=== PATIENT | female | born 1955 | race Caucasian/White ===

== ENCOUNTER 2017-01-31 04:53 | Inpatient (IN) | payer BC ==
[~2017-01-31] VITALS: Ht 157.5 cm; Wt 88.6 kg
[2017-01-31] MEDS ORDERED: TIOT18CA INH (06:00)
[2017-01-31] MEDS ORDERED: FLOVENT (06:00)
[2017-01-31] MEDS ORDERED: FENTANYL PF 100 MCG/2ML IV ONE (06:00)
[2017-01-31] MEDS ORDERED: DOCU-131 PO (06:01)
[2017-01-31] MEDS ORDERED: AMOX1TAB64 PO (06:02)
[2017-01-31] MEDS ORDERED: FENTANYL PF 100 MCG/2ML ONE ×5 (06:03→22:58)
[2017-01-31 08:07] VITALS: BP 149/86
[2017-01-31] MEDS ORDERED: ONDANSETRON 2MG/ML, 2ML IVPush PRN (08:30)
[2017-01-31] MEDS: PANTOPRAZOLE 40 MG IV IVPush SCH (08:30)
[2017-01-31] MEDS ORDERED: morphine SULFATE 10 MG/ML, 1ML IVPush PRN (08:30)
[2017-01-31] MEDS ORDERED: ERTAPENEM 1 GM in SODIUM CHLORIDE 0.9% 50 ML IV SCH (08:30)
[2017-01-31] MEDS ORDERED: hydrALAzine 20 MG/ML, 1ML IVPush PRN (08:30)
[2017-01-31] MEDS ORDERED: POTASSIUM CHLORIDE 40 MEQ in SODIUM CHLORIDE 0.9% 500 ML IV ONE (08:30)
[2017-01-31] MEDS: SODIUM CHLORIDE 0.9% 1,000 ML IV SCH ×2 (08:49→13:51)
[2017-01-31 08:54] LABS: HEMATOCRIT 39.7 % (34.6-47.8); HEMOGLOBIN 13.1 g/dL (11.7-16.4); WHITE BLOOD COUNT 14.7 x10^3/uL (3.4-10)
[2017-01-31] MEDS ORDERED: MIDAZOLAM 1 MG/ML, 2ML ONE ×2 (09:02→22:58)
[2017-01-31 09:06] LABS: BLOOD UREA NITROGEN 8 mg/dL (7-18)
[2017-01-31] MEDS ORDERED: ROPIvacaine/PF 0.2%, 20 ML ONE (09:18)
[2017-01-31] MEDS ORDERED: NOREPINEPHRINE 1 MG/ML, 4ML ONE (09:28)
[2017-01-31] MEDS ORDERED: PROPOFOL 10 MG/ML, 20ML ONE (09:31)
[2017-01-31] MEDS ORDERED: ROCURONIUM 10 MG/ML ONE (09:31)
[2017-01-31] MEDS ORDERED: DEXAMETHASONE 4 MG/ML, 1ML ONE (09:31)
[2017-01-31] MEDS ORDERED: SUCCINYLCHOLINE 20 MG/ML, 10ML ONE (09:31)
[2017-01-31] MEDS ORDERED: ALBUTEROL SULFATE 200 PUFFS/8.5 GR INH ONE (09:31)
[2017-01-31] MEDS ORDERED: HYDROmorphone 2 MG/ML, 1ML ONE (10:04)
[2017-01-31] MEDS ORDERED: NOREPINEPHRINE 4 MG in SODIUM CHLORIDE 0.9% 246 ML IV PRN (12:39)
[2017-01-31] MEDS ORDERED: PHARMACY MAY ADJ FOR RENAL FX MC SCH (13:00)
[2017-01-31] MEDS ORDERED: LIDOCAINE-MPF 1%, 2ML ENDO PRN (13:00)
[2017-01-31] MEDS ORDERED: FAMOTIDINE 20 MG/2 ML IVPush ONE (13:00)
[2017-01-31 13:12] LABS: ABG COLLECTION SITE ARTERIAL LINE
[2017-01-31] MEDS ORDERED: ALBUTEROL/IPRATROPIUM 2.5MG/0.5MG, 3 ML ONE (13:40)
[2017-01-31] MEDS: PIPERACILLIN/TAZO/PMX 3.375GM 50 ML IV SCH ×2 (13:51→20:20)
[2017-01-31] MEDS ORDERED: ENOXAPARIN 30 MG/0.3 ML SQ SCH (14:00)
[2017-01-31] MEDS: PROPOFOL 100 ML IV PRN ×2 (14:18→20:10)
[2017-01-31] MEDS ORDERED: LIDOCAINE 1%, 20ML ONE (14:26)
[2017-01-31] MEDS: ALBUTEROL/IPRATROPIUM 2.5MG/0.5MG, 3 ML INLINE SCH ×3 (14:56→21:56)
[2017-01-31] MEDS: KETOROLAC 30 MG/1 ML IV SCH ×2 (15:20→20:19)
[2017-01-31] MEDS: NOREPINEPHRINE 4 MG in SODIUM CHLORIDE 0.9% 246 ML IV PRN ×2 (17:46→21:25)
[2017-01-31] MEDS ORDERED: OMNIPAQUE 350 MG/ML, 100ML BOTTLE ONE (18:10)
[2017-01-31 21:51] LABS: HEMATOCRIT 30.1 % (34.6-47.8); HEMOGLOBIN 9.9 g/dL (11.7-16.4)
[2017-01-31 22:13] LABS: ABG COLLECTION SITE ARTERIAL LINE
[2017-01-31] MEDS ORDERED: VASOPRESSIN 100 UNIT in SODIUM CHLORIDE 0.9% 495 ML IV PRN (23:00)
[2017-02-01] MEDS ORDERED: CALCIUM CHLORIDE 13.6 MEQ in SODIUM CHLORIDE 0.9% 100 ML IV ONE (01:00)
[2017-02-01] MEDS: SODIUM CHLORIDE 0.9% 1,000 ML IV SCH ×3 (01:01→17:23)
[2017-02-01] MEDS: PIPERACILLIN/TAZO/PMX 3.375GM 50 ML IV SCH ×2 (01:05→07:38)
[2017-02-01] MEDS: KETOROLAC 30 MG/1 ML IV SCH ×5 (01:06→22:14)
[2017-02-01] MEDS: NOREPINEPHRINE 4 MG in SODIUM CHLORIDE 0.9% 246 ML IV PRN ×5 (01:51→19:52)
[2017-02-01 01:58] LABS: PROTIME 13.8 Seconds (9.6-11.5)
[2017-02-01] MEDS: ALBUTEROL/IPRATROPIUM 2.5MG/0.5MG, 3 ML INLINE SCH ×6 (02:11→22:02)
[2017-02-01 04:23] LABS: ABG COLLECTION SITE ARTERIAL LINE
[2017-02-01 04:29] LABS: HEMATOCRIT 28.3 % (34.6-47.8); HEMOGLOBIN 9.4 g/dL (11.7-16.4); WHITE BLOOD COUNT 32.1 x10^3/uL (3.4-10)
[2017-02-01 04:39] LABS: BLOOD UREA NITROGEN 17 mg/dL (7-18)
[2017-02-01 04:43] LABS: ASPARTATE AMINO TRANSFERASE 27 U/L (15-37)
[2017-02-01 04:48] LABS: DIFF TOTAL CELLS COUNTED 100 CELL DIFF
[2017-02-01 04:50] LABS: ANISOCYTOSIS 1+; VERIFY COUNTS? YES
[2017-02-01 04:51] LABS: POLYCHROMASIA 1+
[2017-02-01] MEDS: PANTOPRAZOLE 40 MG IV IVPush SCH (07:38)
[2017-02-01] MEDS: MEROPENEM 1 GM in SODIUM CHLORIDE 0.9% 100 ML IV SCH ×2 (10:00→17:23)
[2017-02-01 11:52] LABS: HEMATOCRIT 24.3 % (34.6-47.8)
[2017-02-01] MEDS: FENTANYL PF 2,500 MCG in SODIUM CHLORIDE 0.9% 200 ML IV PRN (12:20)
[2017-02-01 17:17] LABS: BLOOD UREA NITROGEN 24 mg/dL (7-18)
[2017-02-01 17:21] LABS: HEMOGLOBIN 7.5 g/dL (11.7-16.4)
[2017-02-01 17:24] LABS: HEMATOCRIT 22.8 % (34.6-47.8)
[2017-02-01 17:40] LABS: DIFF TOTAL CELLS COUNTED 100 CELL DIFF
[2017-02-01 17:43] LABS: VERIFY COUNTS? YES
[2017-02-01 17:46] LABS: ANISOCYTOSIS 1+; HYPOCHROMIA 1+; POLYCHROMASIA 1+; TARGET CELLS 1+
[2017-02-01 18:04] VITALS: BP 112/58
[2017-02-01 18:19] VITALS: BP 109/59
[2017-02-01 21:11] LABS: HEMATOCRIT 23.7 % (34.6-47.8)
[2017-02-02] MEDS: NOREPINEPHRINE 4 MG in SODIUM CHLORIDE 0.9% 246 ML IV PRN ×2 (00:29→08:42)
[2017-02-02] MEDS: MEROPENEM 1 GM in SODIUM CHLORIDE 0.9% 100 ML IV SCH ×3 (00:31→17:02)
[2017-02-02] MEDS: ALBUTEROL/IPRATROPIUM 2.5MG/0.5MG, 3 ML INLINE SCH ×5 (01:38→18:59)
[2017-02-02 04:31] LABS: ABG COLLECTION SITE ARTERIAL LINE
[2017-02-02 04:37] LABS: HEMOGLOBIN 7.4 g/dL (11.7-16.4); WHITE BLOOD COUNT 21.7 x10^3/uL (3.4-10)
[2017-02-02 04:46] LABS: HEMATOCRIT 22.3 % (34.6-47.8)
[2017-02-02 04:50] LABS: BLOOD UREA NITROGEN 18 mg/dL (7-18)
[2017-02-02 04:54] LABS: ASPARTATE AMINO TRANSFERASE 25 U/L (15-37)
[2017-02-02 05:08] LABS: DIFF TOTAL CELLS COUNTED 100 CELL DIFF
[2017-02-02 05:09] LABS: ANISOCYTOSIS 1+; VERIFY COUNTS? YES
[2017-02-02 05:10] LABS: POLYCHROMASIA 1+
[2017-02-02] MEDS: KETOROLAC 30 MG/1 ML IV SCH ×4 (05:10→21:31)
[2017-02-02] MEDS: SODIUM CHLORIDE 0.9% 1,000 ML IV SCH ×4 (05:10→21:31)
[2017-02-02] MEDS ORDERED: SODIUM BICARBONATE 1 MEQ/ML, 50ML VIAL ONE (05:57)
[2017-02-02] MEDS ORDERED: SODIUM BICARB 8.4%, 50ML SYRINGE IVPush ONE (06:00)
[2017-02-02] MEDS: PANTOPRAZOLE 40 MG IV IVPush SCH (08:42)
[2017-02-02 10:08] LABS: HEMATOCRIT 19.9 % (34.6-47.8); HEMOGLOBIN 6.6 g/dL (11.7-16.4)
[2017-02-02 10:56] VITALS: BP 123/67
[2017-02-02 11:10] VITALS: BP 109/66
[2017-02-02 12:21] VITALS: BP 107/52
[2017-02-02 12:37] VITALS: BP 114/55
[2017-02-02 12:50] VITALS: BP 114/58
[2017-02-02 14:06] VITALS: BP 109/56
[2017-02-02 15:55] LABS: HEMATOCRIT 25.4 % (34.6-47.8); HEMOGLOBIN 8.6 g/dL (11.7-16.4)
[2017-02-02] MEDS ORDERED: ALBUTEROL/IPRATROPIUM 2.5MG/0.5MG, 3 ML INLINE SCH (21:00)
[2017-02-02 21:43] LABS: HEMATOCRIT 25.1 % (34.6-47.8); HEMOGLOBIN 8.4 g/dL (11.7-16.4)
[2017-02-03] MEDS: MEROPENEM 1 GM in SODIUM CHLORIDE 0.9% 100 ML IV SCH ×3 (01:18→17:54)
[2017-02-03] MEDS: ALBUTEROL/IPRATROPIUM 2.5MG/0.5MG, 3 ML INLINE SCH ×5 (03:00→19:40)
[2017-02-03] MEDS: KETOROLAC 30 MG/1 ML IV SCH (03:46)
[2017-02-03 04:22] LABS: HEMATOCRIT 24.8 % (34.6-47.8); HEMOGLOBIN 8.3 g/dL (11.7-16.4); WHITE BLOOD COUNT 13.8 x10^3/uL (3.4-10)
[2017-02-03 04:30] LABS: BLOOD UREA NITROGEN 15 mg/dL (7-18)
[2017-02-03 04:35] LABS: ASPARTATE AMINO TRANSFERASE 29 U/L (15-37)
[2017-02-03] MEDS: PANTOPRAZOLE 40 MG IV IVPush SCH (07:52)
[2017-02-03] MEDS ORDERED: FUROSEMIDE 20 MG/2 ML IV ONE (09:00)
[2017-02-03] MEDS: FENTANYL PF 2,500 MCG in SODIUM CHLORIDE 0.9% 200 ML IV PRN (09:43)
[2017-02-03 10:02] LABS: HEMATOCRIT 26.1 % (34.6-47.8); HEMOGLOBIN 8.9 g/dL (11.7-16.4)
[2017-02-03 15:26] LABS: HEMATOCRIT 25.8 % (34.6-47.8); HEMOGLOBIN 8.6 g/dL (11.7-16.4)
[2017-02-03 21:52] LABS: HEMATOCRIT 26.1 % (34.6-47.8); HEMOGLOBIN 8.8 g/dL (11.7-16.4)
[2017-02-04] MEDS: MEROPENEM 1 GM in SODIUM CHLORIDE 0.9% 100 ML IV SCH ×3 (00:29→17:55)
[2017-02-04 04:25] LABS: ABG COLLECTION SITE RIGHT RADIAL; COLLATERAL CIRCULATION TESTING NORMAL
[2017-02-04 04:27] LABS: BLOOD UREA NITROGEN 12 mg/dL (7-18)
[2017-02-04 04:30] LABS: HEMATOCRIT 26.7 % (34.6-47.8); HEMOGLOBIN 8.9 g/dL (11.7-16.4); WHITE BLOOD COUNT 11.6 x10^3/uL (3.4-10)
[2017-02-04 05:00] VITALS: BP 130/76
[2017-02-04] MEDS: ALBUTEROL/IPRATROPIUM 2.5MG/0.5MG, 3 ML INLINE SCH ×4 (07:17→20:00)
[2017-02-04] MEDS: PANTOPRAZOLE 40 MG IV IVPush SCH (09:28)
[2017-02-04] MEDS ORDERED: FUROSEMIDE 20 MG/2 ML IV ONE (10:20)
[2017-02-04] MEDS ORDERED: POTASSIUM CHLORIDE 20 MEQ PACKET PO ONE (10:25)
[2017-02-04 14:19] VITALS: BP 129/76
[2017-02-04] MEDS: POTASSIUM CHLORIDE 20 MEQ PACKET PO SCH (17:55)
[2017-02-04] MEDS: FUROSEMIDE 20 MG/2 ML IV SCH (17:56)
[2017-02-04 21:00] VITALS: BP 119/68
[2017-02-04] MEDS ORDERED: DIPHENHYDRAMINE/ZINC CRM 2%, 30GM TP PRN (22:00)
[2017-02-04] MEDS ORDERED: DOCUSATE 50 MG/5 ML, 10ML UDC PO PRN (22:00)
[2017-02-04] MEDS ORDERED: BISACODYL 10 MG SUPP PR PRN (22:00)
[2017-02-05] MEDS: MEROPENEM 1 GM in SODIUM CHLORIDE 0.9% 100 ML IV SCH ×3 (01:11→17:57)
[2017-02-05 01:45] VITALS: BP 122/73
[2017-02-05 05:01] LABS: HEMATOCRIT 25.7 % (34.6-47.8); HEMOGLOBIN 8.7 g/dL (11.7-16.4)
[2017-02-05 05:08] LABS: ASPARTATE AMINO TRANSFERASE 34 U/L (15-37); BLOOD UREA NITROGEN 9 mg/dL (7-18)
[2017-02-05] MEDS: ALBUTEROL/IPRATROPIUM 2.5MG/0.5MG, 3 ML INLINE SCH ×4 (07:00→20:00)
[2017-02-05] MEDS: POTASSIUM CHLORIDE 20 MEQ PACKET PO SCH ×2 (08:00→17:59)
[2017-02-05] MEDS ORDERED: POTASSIUM CHLORIDE 20 MEQ PACKET PO ONE (08:00)
[2017-02-05] MEDS: OXYcodone/APAP 7.5/325MG TABLET PO PRN ×3 (08:27→20:52)
[2017-02-05 08:30] VITALS: BP 125/67
[2017-02-05] MEDS: FUROSEMIDE 20 MG/2 ML IV SCH ×2 (09:04→17:57)
[2017-02-05 15:33] VITALS: BP 109/61
[2017-02-05] MEDS: LACTOBACILLUS CHEW TABLET PO SCH ×2 (17:59→20:52)
[2017-02-05 19:37] VITALS: BP 109/68
[2017-02-05] MEDS: DOCUSATE 50 MG/5 ML, 10ML UDC PO SCH (20:51)
[2017-02-05] MEDS: DIPHENHYDRAMINE/ZINC CRM 2%, 30GM TP PRN (23:09)
[2017-02-06] MEDS: MEROPENEM 1 GM in SODIUM CHLORIDE 0.9% 100 ML IV SCH ×3 (01:36→16:37)
[2017-02-06 01:59] VITALS: BP 109/71
[2017-02-06] MEDS: OXYcodone/APAP 7.5/325MG TABLET PO PRN ×4 (04:50→23:50)
[2017-02-06 04:57] LABS: HEMATOCRIT 28.4 % (34.6-47.8); HEMOGLOBIN 9.3 g/dL (11.7-16.4); WHITE BLOOD COUNT 9.8 x10^3/uL (3.4-10)
[2017-02-06] MEDS: ALBUTEROL/IPRATROPIUM 2.5MG/0.5MG, 3 ML INLINE SCH ×4 (05:10→20:30)
[2017-02-06 05:20] LABS: ASPARTATE AMINO TRANSFERASE 25 U/L (15-37); BLOOD UREA NITROGEN 10 mg/dL (7-18)
[2017-02-06 07:09] VITALS: BP 103/66
[2017-02-06] MEDS: POTASSIUM CHLORIDE 20 MEQ PACKET PO SCH ×2 (08:10→16:33)
[2017-02-06] MEDS: FUROSEMIDE 20 MG/2 ML IV SCH ×2 (08:10→16:36)
[2017-02-06] MEDS: DOCUSATE 50 MG/5 ML, 10ML UDC PO SCH ×2 (08:29→20:20)
[2017-02-06] MEDS: LACTOBACILLUS CHEW TABLET PO SCH ×3 (08:29→20:21)
[2017-02-06] MEDS: DIPHENHYDRAMINE/ZINC CRM 2%, 30GM TP PRN (11:53)
[2017-02-06 14:06] VITALS: BP 106/67
[2017-02-06 18:36] VITALS: BP_SYST 90; BP_SYST 97; BP_DIAS 58; BP_DIAS 60
[2017-02-07] MEDS: MEROPENEM 1 GM in SODIUM CHLORIDE 0.9% 100 ML IV SCH ×3 (01:04→17:08)
[2017-02-07 02:20] VITALS: BP 100/63
[2017-02-07 05:06] LABS: HEMATOCRIT 27.7 % (34.6-47.8); HEMOGLOBIN 9.2 g/dL (11.7-16.4)
[2017-02-07] MEDS: OXYcodone/APAP 7.5/325MG TABLET PO PRN ×3 (06:15→18:06)
[2017-02-07 07:23] VITALS: BP 107/69
[2017-02-07] MEDS: ALBUTEROL/IPRATROPIUM 2.5MG/0.5MG, 3 ML INLINE SCH ×4 (08:41→20:45)
[2017-02-07] MEDS: DOCUSATE 50 MG/5 ML, 10ML UDC PO SCH ×2 (09:17→20:15)
[2017-02-07] MEDS: FUROSEMIDE 20 MG/2 ML IV SCH ×2 (09:18→17:54)
[2017-02-07] MEDS: LACTOBACILLUS CHEW TABLET PO SCH ×3 (09:18→20:15)
[2017-02-07 14:19] VITALS: BP 102/65
[2017-02-07 19:26] VITALS: BP 103/65
[2017-02-08] MEDS: OXYcodone/APAP 7.5/325MG TABLET PO PRN ×4 (00:01→18:37)
[2017-02-08] MEDS: MEROPENEM 1 GM in SODIUM CHLORIDE 0.9% 100 ML IV SCH ×3 (01:05→17:22)
[2017-02-08 02:00] VITALS: BP 97/60
[2017-02-08 04:45] LABS: HEMATOCRIT 26.3 % (34.6-47.8); HEMOGLOBIN 8.7 g/dL (11.7-16.4); WHITE BLOOD COUNT 6.6 x10^3/uL (3.4-10)
[2017-02-08 04:53] LABS: BLOOD UREA NITROGEN 7 mg/dL (7-18)
[2017-02-08] MEDS: ALBUTEROL/IPRATROPIUM 2.5MG/0.5MG, 3 ML INLINE SCH ×4 (07:20→20:00)
[2017-02-08 08:27] VITALS: BP 109/68
[2017-02-08] MEDS: LACTOBACILLUS CHEW TABLET PO SCH ×3 (08:43→21:49)
[2017-02-08] MEDS: DOCUSATE 50 MG/5 ML, 10ML UDC PO SCH ×2 (08:43→21:50)
[2017-02-08] MEDS ORDERED: FUROSEMIDE 40 MG/4 ML IV ONE (12:00)
[2017-02-08 14:53] VITALS: BP 112/71
[2017-02-08 20:00] VITALS: BP 118/71
[2017-02-09] MEDS: OXYcodone/APAP 7.5/325MG TABLET PO PRN ×4 (00:42→21:03)
[2017-02-09] MEDS: MEROPENEM 1 GM in SODIUM CHLORIDE 0.9% 100 ML IV SCH ×3 (00:43→16:55)
[2017-02-09 04:00] VITALS: BP 110/71
[2017-02-09 06:07] LABS: HEMATOCRIT 27.7 % (34.6-47.8); WHITE BLOOD COUNT 6.7 x10^3/uL (3.4-10)
[2017-02-09 06:18] LABS: BLOOD UREA NITROGEN 7 mg/dL (7-18)
[2017-02-09 06:22] LABS: ASPARTATE AMINO TRANSFERASE 21 U/L (15-37)
[2017-02-09] MEDS: ALBUTEROL/IPRATROPIUM 2.5MG/0.5MG, 3 ML INLINE SCH (07:00)
[2017-02-09 07:37] VITALS: BP 112/68
[2017-02-09] MEDS: DOCUSATE 50 MG/5 ML, 10ML UDC PO SCH ×2 (08:22→21:03)
[2017-02-09] MEDS: LACTOBACILLUS CHEW TABLET PO SCH ×3 (08:22→21:03)
[2017-02-09] MEDS ORDERED: CATHFLO-ALTEPLASE 2 MG/2 ML CATHFLUSH ONE (09:30)
[2017-02-09] MEDS ORDERED: FUROSEMIDE 40 MG TABLET PO SCH (12:00)
[2017-02-09 13:52] VITALS: BP 101/66
[2017-02-09 19:57] VITALS: BP 102/62
[2017-02-10] MEDS: MEROPENEM 1 GM in SODIUM CHLORIDE 0.9% 100 ML IV SCH ×3 (01:00→17:00)
[2017-02-10] MEDS: OXYcodone/APAP 7.5/325MG TABLET PO PRN ×3 (06:30→21:19)
[2017-02-10 08:16] LABS: ASPARTATE AMINO TRANSFERASE 26 U/L (15-37); BLOOD UREA NITROGEN 9 mg/dL (7-18)
[2017-02-10 08:17] LABS: HEMATOCRIT 29.9 % (34.6-47.8); HEMOGLOBIN 9.6 g/dL (11.7-16.4); WHITE BLOOD COUNT 6.8 x10^3/uL (3.4-10)
[2017-02-10] MEDS: DOCUSATE 50 MG/5 ML, 10ML UDC PO SCH ×2 (08:45→21:19)
[2017-02-10] MEDS: LACTOBACILLUS CHEW TABLET PO SCH ×3 (08:45→21:19)
[2017-02-10 08:50] VITALS: BP 109/61
[2017-02-10] MEDS: FUROSEMIDE 20 MG TABLET PO SCH (10:46)
[2017-02-10] MEDS ORDERED: ALBUTEROL/IPRATROPIUM 2.5MG/0.5MG, 3 ML INLINE PRN (11:00)
[2017-02-10 13:29] VITALS: BP 120/70
[2017-02-10 20:23] VITALS: BP 120/74
[2017-02-10] MEDS: ERTAPENEM 1 GM in SODIUM CHLORIDE 0.9% 50 ML IV SCH (21:35)
[2017-02-10] MEDS ORDERED: OMNIPAQUE 350 MG/ML, 100ML BOTTLE ONE (22:50)
[2017-02-11 03:43] VITALS: BP 99/61
[2017-02-11 05:33] LABS: HEMATOCRIT 29.9 % (34.6-47.8); HEMOGLOBIN 9.8 g/dL (11.7-16.4); WHITE BLOOD COUNT 7.1 x10^3/uL (3.4-10)
[2017-02-11 05:44] LABS: BLOOD UREA NITROGEN 11 mg/dL (7-18)
[2017-02-11 07:10] VITALS: BP 99/65
[2017-02-11] MEDS: FUROSEMIDE 20 MG TABLET PO SCH (09:17)
[2017-02-11] MEDS: OXYcodone/APAP 7.5/325MG TABLET PO PRN ×2 (09:18→15:42)
[2017-02-11] MEDS: DOCUSATE 50 MG/5 ML, 10ML UDC PO SCH (09:18)
[2017-02-11] MEDS: LACTOBACILLUS CHEW TABLET PO SCH ×2 (09:18→15:31)
[2017-02-11] MEDS ORDERED: PNEUMOC 13-VALENT VACC, 0.5 ML IM-VACC ONE (13:30)
[2017-02-11 13:35] VITALS: BP 101/67
[2017-02-11] MEDS ORDERED: FLU VACC QS2017-18 (36MOS+) UP/PF 0.5 ML IM-VACC ONE (14:00)
[2017-02-11] MEDS ORDERED: ACID1TAB7 PO (14:18)
[2017-02-11] MEDS ORDERED: AMOX1TAB61 PO (14:18)
[2017-02-11] MEDS ORDERED: OXYC1TAB8 PO (14:18)
[2017-02-11] MEDS: ERTAPENEM 1 GM in SODIUM CHLORIDE 0.9% 50 ML IV SCH (15:31)
== END 2017-02-11 18:40 | DRG 853 ==
LOC: ED 06:31 → EDIP 06:48 → 3NE 07:59 → CCU 11:59 → 4NOR 02-04 12:49
PROVIDERS: ADMIT Internal Medicine; ATTEND Internal Medicine
PROC: 0DTJ0ZZ Resection of Appendix, Open Approach (ICD-10-PCS; 2017-01-31)
PROC: 0DTN0ZZ Resection of Sigmoid Colon, Open Approach (ICD-10-PCS; 2017-01-31)
PROC: 02HV33Z Insertion of Infusion Device into Superior Vena Cava, Percutaneous Approach (ICD-10-PCS; 2017-01-31)
PROC: B5181ZA Fluoroscopy of Superior Vena Cava using Low Osmolar Contrast, Guidance (ICD-10-PCS; 2017-01-31)
PROC: 5A1945Z Respiratory Ventilation, 24-96 Consecutive Hours (ICD-10-PCS; 2017-01-31)
PROC: 0BH17EZ Insertion of Endotracheal Airway into Trachea, Via Natural or Artificial Opening (ICD-10-PCS; 2017-01-31)
PROC: 30233N1 Transfusion of Nonautologous Red Blood Cells into Peripheral Vein, Percutaneous Approach (ICD-10-PCS; principal; 2017-01-31 09:00)
DX: A41.9 Sepsis, unspecified organism (principal); E43 Unspecified severe protein-calorie malnutrition; R65.21 Severe sepsis with septic shock; J96.00 Acute respiratory failure, unspecified whether with hypoxia or hypercapnia; J81.1 Chronic pulmonary edema; K57.20 Diverticulitis of large intestine with perforation and abscess without bleeding; E87.0 Hyperosmolality and hypernatremia; D62 Acute posthemorrhagic anemia; J98.11 Atelectasis; E87.70 Fluid overload, unspecified; Z68.35 Body mass index [BMI] 35.0-35.9, adult; E87.6 Hypokalemia; F17.210 Nicotine dependence, cigarettes, uncomplicated; J44.9 Chronic obstructive pulmonary disease, unspecified; K59.00 Constipation, unspecified; K66.0 Peritoneal adhesions (postprocedural) (postinfection); Z80.7 Family history of other malignant neoplasms of lymphoid, hematopoietic and related tissues; Z82.49 Family history of ischemic heart disease and other diseases of the circulatory system; Z90.710 Acquired absence of both cervix and uterus
CPT/HCPCS: 36415; 36569; 36600; 71010; 71275; 74177; 76937; 77001; 80048; 80053; 82040; 82105; 82330; 82378; 82803; 82947; 83605; 83735; 84100; 84132; 84295; 84478; 85014; 85018; 85025; 85049; 85379; 85384; 85610; 85651; 85730; 86140; 86301; 86635; 86704; 86706; 86708; 86803; 86850; 86900; 86923; 87040; 87070; 87075; 87077; 87081; 87186; 87205; 87340; 88302; 88304; 88307; 93005; 93306; 94002; 94003; 94640; 96374; C1729; J1100; J1170; J1335; J1650; J1885; J1940; J2185; J2250; J2270; J2543; J2704; J2795; J2997; J3010; J3480; J3490; J7620; Q9967; C1751; C1765; C9113; G0009; J0330; J7030; J7040; J7050; P9016; S0028